=== PATIENT | male | born 1965 | race African-American/Black ===

== ENCOUNTER 2016-09-25 01:50 | Emergency (ER) | payer MEDICAID ==
[~2016-09-25] VITALS: Ht 175.3 cm; Wt 104.5 kg
[~2016-09-25 01:50] MED LIST: NOCURR
[2016-09-25 01:51] VITALS: BP 156/87
[2016-09-25] MEDS ORDERED: HYDR-309 PO (01:56)
[2016-09-25] MEDS ORDERED: KETOROLAC TROMETHAMINE 60 MG/2 ML VIAL IM ONE (02:45)
== END 2016-09-25 03:00 | disposition home or self-care (01) ==
LOC: EMS 01:51
DX: M25.561 Pain in right knee (principal); F60.9 Personality disorder, unspecified; F12.90 Cannabis use, unspecified, uncomplicated; F17.210 Nicotine dependence, cigarettes, uncomplicated
CPT/HCPCS: 29530; 99282; 99406; J1885

== ENCOUNTER 2024-06-16 13:02 | Emergency (ER) | payer MEDICAID, OTHER ==
[~2024-06-16] VITALS: Ht 172.7 cm; Wt 100.0 kg
[~2024-06-16 13:02] MED LIST changes: +HYDR-309 PO; -NOCURR
[2024-06-16 13:10] VITALS: BP 157/88; PULSE 84; RESP 18; TEMP 98.2; O2SAT 99
[2024-06-16] MEDS ORDERED: LISI-892 PO (13:12)
== END 2024-06-16 14:04 | disposition home or self-care (01) ==
LOC: EMS 13:11
DX: S39.012A Strain of muscle, fascia and tendon of lower back, initial encounter (principal); I10 Essential (primary) hypertension; J45.909 Unspecified asthma, uncomplicated; F12.90 Cannabis use, unspecified, uncomplicated; F17.210 Nicotine dependence, cigarettes, uncomplicated; Z79.899 Other long term (current) drug therapy; V43.52XA Car driver injured in collision with other type car in traffic accident, initial encounter; Y93.89 Activity, other specified; Y92.410 Unspecified street and highway as the place of occurrence of the external cause; Y99.8 Other external cause status
CPT/HCPCS: 99281; Z7502

== ENCOUNTER 2025-03-14 12:05 | Emergency (ER) | payer MEDICAID, OTHER ==
[~2025-03-14] VITALS: Ht 180.3 cm; Wt 118.2 kg
[~2025-03-14 12:05] MED LIST changes: -HYDR-309 PO; +LISI-892 PO
[2025-03-14 12:10] VITALS: TEMP 97.9
[2025-03-14] MEDS: LIDOCAINE 5% TRANSDERMAL PATCH TD ONE (13:28)
[2025-03-14] MEDS: KETOROLAC TROMETHAMINE 60 MG/2 ML VIAL IM ONE (13:28)
[2025-03-14 13:55] VITALS: BP 136/90; PULSE 95; RESP 18; O2SAT 97
[2025-03-14] MEDS ORDERED: LIDO-57 TP (15:33)
[2025-03-14] MEDS ORDERED: IBUP-1492 PO (15:33)
== END 2025-03-14 19:04 | disposition home or self-care (01) ==
LOC: EMS 12:25
DX: S62.611A Displaced fracture of proximal phalanx of left index finger, initial encounter for closed fracture (principal); S39.012A Strain of muscle, fascia and tendon of lower back, initial encounter; J45.909 Unspecified asthma, uncomplicated; I10 Essential (primary) hypertension; G89.29 Other chronic pain; F12.90 Cannabis use, unspecified, uncomplicated; F17.210 Nicotine dependence, cigarettes, uncomplicated; Z79.899 Other long term (current) drug therapy; Z98.890 Other specified postprocedural states; V43.52XA Car driver injured in collision with other type car in traffic accident, initial encounter; Y93.89 Activity, other specified; Y92.410 Unspecified street and highway as the place of occurrence of the external cause; Y99.8 Other external cause status
CPT/HCPCS: 72100; 96372; 99284; J1885